=== PATIENT | female | born 1960 | race Caucasian/White ===

== ENCOUNTER 2021-06-18 09:03 | Outpatient (CLI) | payer OTHER ==
[2021-06-18 21:47] LABS: SARS-CoV-2 PCR by NAA Not Detected (NotDetected)
== END 2021-06-18 09:04 | disposition home or self-care (01) ==
LOC: CSHLAB 09:03
PROVIDERS: ATTEND Surgery
DX: Z20.822 Contact with and (suspected) exposure to COVID-19 (principal); C50.912 Malignant neoplasm of unspecified site of left female breast
CPT/HCPCS: U0003; U0005

== ENCOUNTER 2021-06-21 07:24 | Day surgery (SDC) | payer OTHER ==
[2021-06-19 09:25] VITALS: BMI 34.2
[2021-06-21] MEDS ORDERED: Isosulfan Blue 50 MG/5 ML VIAL ONE (08:44)
[2021-06-21] MEDS ORDERED: EPINEPHrine 1 MG/ML AMP ONE (08:44)
[2021-06-21] MEDS ORDERED: Bupivacaine PF 0.5% 30 ML VIAL ONE (08:44)
[2021-06-21] MEDS ORDERED: Lidocaine 1% MPF 2 ML VIAL ONE (08:50)
[2021-06-21] MEDS ORDERED: ceFAZolin 2 GM/Dextrose 50 ML IVPB ONE (09:43)
[2021-06-21] MEDS ORDERED: PROPOFOL 20 ML ONE (09:44)
[2021-06-21] MEDS ORDERED: Fentanyl 100 MCG/2 ML VIAL ONE (09:44)
[2021-06-21] MEDS ORDERED: Ondansetron PF 4 MG/2 ML Vial ONE (09:45)
[2021-06-21] MEDS ORDERED: Dexamethasone 20 MG/5 ML VIAL ONE (09:45)
[2021-06-21] MEDS ORDERED: Ketorolac Tromethamine 30 MG/ML VIAL ONE (09:45)
[2021-06-21] MEDS ORDERED: Lidocaine 2% PF 5 ML VIAL ONE (09:45)
[2021-06-21] MEDS ORDERED: Acetaminophen 325 MG TAB PO PRN (11:32)
[2021-06-21] MEDS ORDERED: HYDROcodone/Acetaminophen 5/325 mg Tablet PO PRN (11:32)
== END 2021-06-21 12:20 | disposition home or self-care (01) ==
LOC: CSHSDC 07:24
PROVIDERS: ATTEND Surgery
PROC: 0HBU0ZZ Excision of Left Breast, Open Approach (ICD-10-PCS; principal; 2021-06-21)
PROC: 07B60ZX Excision of Left Axillary Lymphatic, Open Approach, Diagnostic (ICD-10-PCS; principal; 2021-06-21)
DX: C50.212 Malignant neoplasm of upper-inner quadrant of left female breast (principal); N60.22 Fibroadenosis of left breast; L40.50 Arthropathic psoriasis, unspecified; I10 Essential (primary) hypertension; E66.9 Obesity, unspecified; Z68.34 Body mass index [BMI] 34.0-34.9, adult; Z17.0 Estrogen receptor positive status [ER+]; Z87.891 Personal history of nicotine dependence
CPT/HCPCS: 19281; 76098; 78195; 88307; 88342; A9541; C1713; J0171; J0690; J1100; J1885; J2001; J2405; J2704; J3010; Q9968; S0020